=== PATIENT | male | born 1965 | race Two or more races ===

== ENCOUNTER 2020-11-01 18:11 | Emergency (ER) | payer SELFPAY ==
[2020-11-01 18:20] VITALS: BP 161/84
--- NOTE | 2020-11-01 18:58 | ER Document Report ---
ED General - General Chief Complaint: Congestion Stated Complaint: CONGESTION AND FEVER Time Seen by Provider: 11/01/20 18:52 - HPI Notes: Patient is a 54-year-old male with HLD who presents for COVID-19 testing. 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 He reports nasal congestion but denies any other symptoms including chest pain, shortness of breath, fever, and vomiting. He denies any tobacco use. Past Medical History - General Information source: Patient - Social History Smoking Status: Unknown if Ever Smoked Family History: Reviewed & Not Pertinent Review of Systems - Review of Systems Constitutional: No symptoms reported EENT: See HPI Cardiovascular: No symptoms reported Respiratory: No symptoms reported Gastrointestinal: No symptoms reported Genitourinary: No symptoms reported Male Genitourinary: No symptoms reported Musculoskeletal: No symptoms reported Skin: No symptoms reported Hematologic/Lymphatic: No symptoms reported Neurological/Psychological: No symptoms reported Physical Exam - Vital signs Vitals: Temp Pulse Resp BP Pulse Ox 98.2 F 73 20 161/84 H 97 11/01/20 18:20 11/01/20 18:20 11/01/20 18:20 11/01/20 18:20 11/01/20 18:20 - Notes Notes: PHYSICAL EXAMINATION: VITALS: Vitals reviewed and within normal limits. GENERAL: Well-appearing, well-nourished and in no acute distress. HEAD: Atraumatic, normocephalic. LUNGS: Breath sounds clear to auscultation bilaterally and equal. No wheezes rales or rhonchi. HEART: Regular rate and rhythm without murmurs. ABDOMEN: Soft, nontender, normoactive bowel sounds. No guarding, no rebound. No masses appreciated. PSYCH: Normal mood, normal affect. SKIN: Warm, Dry, normal turgor, no rashes or lesions noted. Course - Re-evaluation Re-evalutation: Patient is a 54-year-old male with HLD who presents for COVID-19 testing due to an exposure. Patient reports nasal congestion but denies any other symptoms. He states he would only like to have COVID-19 testing done. Vital signs are within normal limits. On exam, lungs are clear to auscultation bilaterally and his heart has a regular rate and rhythm. COVID-19 swab done here in the ED. Patient instructed that the test typically results in 2 to 3 days and he will be notified by phone with his results. Patient advised to quarantine until he is aware of his results. Return precautions and follow-up instructions given. Patient understands and is in agreement with the plan. Patient will be discharged home. - Vital Signs Vital signs: Temp Pulse Resp BP Pulse Ox 98.2 F 73 20 161/84 H 97 11/01/20 18:20 11/01/20 18:20 11/01/20 18:20 11/01/20 18:20 11/01/20 18:20 - Laboratory Results Critical Laboratory Results Reviewed: No Critical Results - Radiology Results Critical Radiology Results Reviewed: No Critical Results Discharge - Discharge Clinical Impression: Exposure to COVID-19 virus Condition: Stable Disposition: HOME, SELF-CARE Instructions: COVID-19 Guidance for Persons Under Investigation Referrals: [facility] [Provider Group] - Follow up as needed
== END 2020-11-01 19:30 | disposition home or self-care (01) ==
LOC: ER 18:11
DX: R68.89 Other general symptoms and signs (principal); R09.81 Nasal congestion; Z20.828 Contact with and (suspected) exposure to other viral communicable diseases
CPT/HCPCS: 99283; 87635; C9803